=== PATIENT | female | born 1975 | race Two or more races ===

== ENCOUNTER 2018-01-07 11:25 | Emergency (ER) | payer MEDICAID ==
[~2018-01-07] VITALS: Ht 170.2 cm; Wt 65.8 kg
[2018-01-07] MEDS ORDERED: LORAZEPAM 1 MG TABLET ONE (11:52)
[2018-01-07] MEDS ORDERED: LORAZEPAM 1 MG TABLET PO ONE (12:00)
--- NOTE | 2018-01-07 12:55 | NUR ---
PT. VERBALIZED UNDERSTANDING OF AFTERCARE INSTRUCTIONS.Patient discharged to home in stable condition. Written and verbal after care instructions given. Patient verbalizes understanding of instruction.
[2018-01-07 12:59] VITALS: BP 134/74
== END 2018-01-07 12:59 | disposition home or self-care (01) ==
LOC: ER 11:29
DX: F41.9 Anxiety disorder, unspecified (principal); I10 Essential (primary) hypertension; E03.9 Hypothyroidism, unspecified; R00.0 Tachycardia, unspecified
CPT/HCPCS: 93005 ×2; 99284; A4606; Z7610